=== PATIENT | male | born 1950 | race Two or more races ===

== ENCOUNTER 2024-01-14 14:49 | Emergency (ER) | payer OTHER ==
[~2024-01-14] VITALS: Ht 165.1 cm; Wt 78.5 kg
[2024-01-14] MEDS ORDERED: FAMOTIDINE/PF 20 MG/2 ML VIAL IV ONE (20:00)
[2024-01-14] MEDS ORDERED: 0.9 % SODIUM CHLORIDE 500 ML IV ONE (20:00)
[2024-01-14] MEDS ORDERED: ONDANSETRON HCL 2 MG/ML VIAL IV ONE (20:00)
[2024-01-14] MEDS ORDERED: ONDANSETRON HCL 2 MG/ML VIAL ONE (20:05)
[2024-01-14] MEDS ORDERED: FAMOTIDINE/PF 20 MG/2 ML VIAL ONE (20:05)
[2024-01-14 20:49] LABS: ALBUMIN 3.6 gm/dL (3.4-5.0); BILIRUBIN TOTAL 0.59 mg/dL (0.3-1.2); CALCIUM 9.1 mg/dL (8.5-10.1); CREATININE SERUM 1.16 mg/dL (0.70-1.30); GFR 61.71; GLOBULINA 4.1 G/DL (2.4-3.5); POTASSIUM 4.16 mEq/L (3.5-5.1); TOTAL PROTEIN 7.7 gm/dL (6.4-8.2)
[2024-01-14 21:03] LABS: HEMATOCRIT 52.1 % (39.0-48.0); HEMOGLOBIN 17.6 g/dL (13-16.00); MEAN CORPUSCULAR HEMOGLOBIN 32.4 pg (27.00-32.0); MEAN CORPUSCULAR HGB CONC 33.8 g/dl (32.0-36.0); PLATELET COUNT 252 K/uL (150-450); RED BLOOD COUNT 5.43 M/uL (4.00-6.00); RED CELL DISTRIBUTION WIDTH 13.2 % (11.5-14.5)
[2024-01-14] MEDS ORDERED: MECLIZINE HCL12.5 MG PO (22:20)
== END 2024-01-14 22:40 ==
LOC: ER 14:49
PROVIDERS: Emergency Medicine; Nurse Practitioner Family
DX: R42 Dizziness and giddiness (principal); R11.10 Vomiting, unspecified; Z20.822 Contact with and (suspected) exposure to COVID-19